=== PATIENT | female | born 1940 | race Native Hawaiian/Other Pacific Islander ===

== ENCOUNTER 2021-02-09 17:29 | Emergency (ER) | payer OTHER ==
[~2021-02-09 17:29] MED LIST: ACCU-CHEK COMBO XX; ALBUSOL IN; ALL DAY ALLERGY10 M1 PO; BUSP5TAB2 PO; COZAAR100 MG PO; DECUBI-VITE PO; DIVA125C PO; DIVA500T2 PO; DONE5TAB PO; DULOXETINE HCL30 MG PO; DULOXETINE HCL60 MG PO; ESCI10TA PO; FENT12DI3 TD; FENT25DI TD; FURO20TA67 PO; GLIM2TAB PO; HYDRALAZINE25 MG PO; LACTSYP31 PO; LIPITOR10 MG PO; LUBI24CA PO; MAGNSUS68 PO; MECLIZINE25 MG PO; NAMENDA10 MG PO; NEXIUM40 MG PO; OLANZAPINE2.5 MG PO; OXYGEN NAS; POLY GLYCOL3350 M1 PO; PRAMIPEXOLE0.25 MG PO; PROTEINE1 PO; RANI150T78 PO; ROPINIROLE0.5 MG PO; SPIRONOLACT25 MG PO; TRAMADOL HCL100 MG PO; TRAZ50TA36 PO; TYLENOL325 MG PO; UNITH DIRECT75 MCG PO; VITAMIN D-11000 UNIT PO; ZINC40OI11 TOP; ZOFRAN8 MG PO; [UNRECOGNIZED DRUG - OTHER] PO; [UNRECOGNIZED DRUG - SUPPLY]
[2021-02-15] MEDS ORDERED: TRILEPTAL150 MG PO (14:02)
[2021-02-15] MEDS ORDERED: PERPHENAZINE4 MG PO (14:03)
[2021-02-15] MEDS ORDERED: DULO60CA2 PO (14:09)
[2021-02-15] MEDS ORDERED: GAS RELIEF80 MG (14:36)
[2021-02-15] MEDS ORDERED: FAMO20TA4 PO (14:37)
[2021-02-16 15:08] LABS: PLATELET COUNT 257 K/uL (152-353)
[2021-02-16 15:09] LABS: POTASSIUM 4.4 mmol/L (3.6-5.2)
== END 2021-02-09 18:12 | disposition other institution (70) ==
LOC: ED 17:29
PROVIDERS: Family Medicine
DX: F99 Mental disorder, not otherwise specified (principal); Z11.52 Encounter for screening for COVID-19; Z04.6 Encounter for general psychiatric examination, requested by authority
CPT/HCPCS: 36415; 80053; 85027; 87635; 93005; 99283; U0003